=== PATIENT | female | born 1990 | race Caucasian/White ===

== ENCOUNTER 2017-07-30 20:57 | Emergency (ER) | payer OTHER ==
[~2017-07-30] VITALS: Ht 162.6 cm; Wt 77.1 kg
[~2017-07-30 20:57] MED LIST: NAPROXEN500 MG PO; OXYCODONE HCL15 MG PO; OXYCODONE-ACET1 EAC3 PO
[2017-07-31] MEDS ORDERED: CIPRO HC OTIC S10 ML AD (08:15)
[2017-07-31] MEDS ORDERED: CLEOCIN HCL300 MG PO (08:15)
== END 2017-07-30 22:38 | disposition left against medical advice (07) ==
LOC: ED 20:57
DX: Z53.21 Procedure and treatment not carried out due to patient leaving prior to being seen by health care provider (principal)

== ENCOUNTER 2017-07-31 07:47 | Emergency (ER) | payer OTHER ==
[~2017-07-31] VITALS: Ht 162.6 cm; Wt 79.4 kg
[2017-07-31] MEDS ORDERED: CIPRO HC OTIC S10 ML AD (08:15)
[2017-07-31] MEDS ORDERED: CLEOCIN HCL300 MG PO (08:15)
== END 2017-07-31 08:27 | disposition home or self-care (01) ==
LOC: ED 07:47
DX: N61.1 Abscess of the breast and nipple (principal); H60.91 Unspecified otitis externa, right ear; Z23 Encounter for immunization; F17.200 Nicotine dependence, unspecified, uncomplicated; Z88.5 Allergy status to narcotic agent
CPT/HCPCS: 90471; 90715; 96372; 99283; J1885

== ENCOUNTER 2017-09-14 19:20 | Inpatient (IN) | payer OTHER ==
[~2017-09-14] VITALS: Ht 162.6 cm; Wt 87.3 kg
[~2017-09-14 19:20] MED LIST changes: +CIPRO HC OTIC S10 ML AD; +CLEOCIN HCL300 MG PO
[2017-09-14] MEDS ORDERED: ACETAMINOPHEN500 MG PO (20:53)
[2017-09-14] MEDS ORDERED: IBUPROFEN200 M1 PO (20:54)
--- NOTE | 2017-09-15 03:48 | NUR ---
PT ADMITTED FROM ED TO ROOM 130, EMOTIONAL, COMPLAINING OF NECK PAIN, LEFT GROIN PAIN, COMPLAINING OF SCD'S. EDUCATED ON NEED FOR SCD'S. REQUESTED PAIN MED TORODAL GIVEN, BOLUS LR INFUSING, ANTIBIOTIC INFUSING WELL. PT REQUESTED FOOD, RECEIVED. UP TO COMMODE TO VOID WITH 1 PERSON ASSIST. WARM COMPRESS OFFERED, BUT REFUSED TO PUT ON HER NECK TO TO PAIN WITH PRESSURE, LAID NEAR NECK. NECK IS NOT RED, BUT SWOLLEN SOME. PT COMPLAINS OF INTERNAL PAIN. FEMERAL LINE, RIGHT GROIN WNL. PT STATES SHE LAST USED HERION 2 NIGHTS AGO, STATES LAST BM WAS "MAYBE LAST THURSDAY" OR THURSDAY. ON ROOM AIR, SATS 98. BOYFRIEND AT BEDSIDE. CALL LIGHT WITHIN REACH.
--- NOTE | 2017-09-15 04:16 | NUR ---
CALLED DR ANGELES @ 0400 TO REQUEST SOMETHING MORE FOR PAIN PER PT NARENDRA. DUE TO PT DRUG HISTORY AND NARCOTIC ADDICTION FROM THE PAST, HE STATED TO GIVE THE TYLENOL AND ORDERED IBUPROFEN PRN. GAVE PT THE TYLENOL, SHE THEN GOT EMOTIONAL AND SAID WHAT IS HE GOING TO DO WITH "THE WITHDRAWLS I HAVE". VISITED WITH PT ABOUT HER HERION USE, SHE STATES SHE USES DAILY, THEN SHE SAID WHAT IS HE GOING TO DO ABOUT ME NOT SLEEPING. PT IS SITTING UPRIGHT IN BED. SUGGEST SHE TRY TO REST AND SEE IF THE TYLENOL WORKS. PT TOOK HER SCD'S OFF. DIDN'T WANT THEM ON TO START WITH BUT ALLOWED THEM FOR A SHORT TIME, WAS EDUCATED ABOUT WHY THEY ARE USED. SHE STATED SHE UNDERSTOOD.
--- NOTE | 2017-09-15 04:43 | NUR ---
CALLED DR ANGELES TO REPORT PT CONCERN WITH WITHDRAWL, ORDERED METHADONE, HOWEVER MAY NOT BE AVAILABLE TIL PHARMACY COMES IN HOUSE. WILL LET PT KNOW.
--- NOTE | 2017-09-15 05:07 | NUR ---
PT CONTINUES TO BE UPSET, MED WITH JAYANT D/T HER COMPLAINT OF W/D AND HER CONTINUED COMPLAINT SHE CAN'T SLEEP. PT SITTING ON EDGE BED CRYING, KICKING LEGS, COMPLAINING HER LEGS ARE TOO RESTLESS AND MAYBE SHE WILL HAVE THIS "IV" TAKEN OUT AND JUST LEAVE. ENCOURAGED PT TO STAY AND RECEIVE HER ANTIBIOTICS. SHE WANTS TO KNOW WHY ALL THESE THINGS HAVE TO BE ON MY CHEST. EXPLAINED.
--- NOTE | 2017-09-15 05:33 | NUR ---
MED WITH METHADONE, PT CHEWED TABLETS AFTER WONDERING WHY THEY WERE SO SMALL. LAID DOWN IMMEDIATLY, CALMED DOWN. ASK PT HOW LONG BEFORE SHE WILL FEEL THE EFFECTS SHE HAS TAKEN METHADONE "OFF THE STREET", SHE SAID 20 MIN. COVERED WITH BLANKETS, CALL LIGHT WITHIN REACH. RECEIVED REPORT JUST NOW FROM ED RD. SHE STATES PT IS HOMELESS WHICH MAY EXPLAIN WHY PT FEET ARE FILTHY WELL HER HANDS.
--- NOTE | 2017-09-15 06:00 | NUR ---
ATTEMPTED TO DO THE 0600 VITALS, PT REFUSED, WOULD NOT SIT STILL TO DO THE BP, SAID ISN'T THE OTHER 3 ENOUGH YOU DID ALREADY. EXPLAINED THE PROTOCOL, SHE WAS NOT INTERESTED, WANTED THE PHONE, WANTED FOOD. DID GO TO THE BATHROOM AND TRIED TO HAVE A BM, HAD A "SMALL ONE" SHE SAID. PT HAS REFUSED TO KEEP THE PULSEOX ON, REFUSED TO KEEP THE BP CUFF ON , AND WANTS THE HEART MONITOR OFF, SHE IS AWARE OF ALL THE REASONS TO KEEP THEM ON. DR ANGELES NOTIFIED PER JENNIFER VICTORIA.
--- NOTE | 2017-09-15 06:08 | NUR ---
CALLED MD TO UPDATE THE PATIENT IS RESFUSING TO LET US MONITOR HER AT THIS TIME. PT WILL NOT LET STAFF TAKE A BP, MONITOR HR, APPLY SCD'S. PT STATES "I HATE THIS IV, I SHOULD HAVE NEVER LET THEM PUT IT IN". PT STATES "MY SKIN IS CRAWLING, I JUST CANT HOLD STILL". EDUCATED PT ON PURPOSE OF INTERVENTIONS. PT IS TO AGITATED TO UNDERSTAND EDUCATION AT THIS TIME. PER MD GIVE ATIVAN TO HELP WITH AGITATION. NEW ORDER PLACED. WILL CONTINUE TO CLOSELY MONITOR.
--- NOTE | 2017-09-15 06:25 | NUR ---
ENTERED PT ROOM TO UPDATE PT REGAURDING MEDICATION CHANGES. PT WAS RESTING IN BED. PT STARTELED WHEN WOKEN AND STATED "I DONT WANT THOSE CORDS". UPDATED REGUARDING PLAN OF CARE AND MEDICATION CHANGES. PT AGREED TO HAVE HEART MONITOR PLACED BACK ON AND HAVE HER BP TAKEN. PT FELL BACK TO SLEEP WHILE STAFF WERE STILL IN ROOM. WILL HOLD ATIVAN AT THIS TIME WHILE PT IS ABLE TO REST. WILL CONTINUE TO CLOSELY MONITOR.
--- NOTE | 2017-09-15 07:24 | NUR ---
PT GOT SELF TO BSC, VOIDED 1000, STATES SKIN IS LESS CRAWLY, STATES THE METHADONE HAS "KICKED IN", FEELING TIRED.
--- NOTE | 2017-09-15 08:32 | NUR ---
SLEEPING. NO DISTRESS NOTED. IVF PATENT,
--- NOTE | 2017-09-15 10:20 | NUR ---
AWAKE AND AGITATED. REQUESTING METHADONE. THIS NOT ORDERED. ATIVAN 1 MG IV GIVEN, C/O PAIN IN NECK. 11/06. TORDOL GIVEN 30 MG IV. VERY ANGERY ABOUT MOT HAVING METHADONE. DR. ANGELES AWARE.
--- NOTE | 2017-09-15 11:03 | NUR ---
MED REC COMPLETE
--- NOTE | 2017-09-15 11:10 | NUR ---
METHADONE 10 MG PO GIVEN.
--- NOTE | 2017-09-15 12:45 | NUR ---
ANXIOUS. STATES FEELS LIKE GOING THROUGH WITHDRAWAL. DR. ANGELES NOTIEFIED.
--- NOTE | 2017-09-15 12:53 | NUR ---
VALIUM 10 MG IV GIVEN.
--- NOTE | 2017-09-15 17:00 | NUR ---
SPONGE BATH AND BED LINEN CHANGE DONE.
--- NOTE | 2017-09-15 17:05 | NUR ---
REQUESTING VALIUM. VALIUM 5 MG IV GIVEN.
--- NOTE | 2017-09-15 17:35 | NUR ---
IS CRYING AND YELLING OUT ABOUT THE PAIN SHE IS HAVING. STATES WE ARE NOT HELPING HERE WITH THE NECK PAIN. UNABLE TO REASON WITH PATIENT. DR. ANGELES NOTIFIED. METHADONE DC'D AND ULTRAM 50 MG PO Q 6 HR PRN ORDERED. PATIENT MOTHER IS IN ROOM.
--- NOTE | 2017-09-15 18:15 | NUR ---
ULTRAM 50 MG PO GIVEN FOR C/O NECK PAIN 11/06.
--- NOTE | 2017-09-15 20:30 | NUR ---
REPORT RC'D FROM DAY SHIFT NURSE. PT USED CALL LIGHT APPROPRIATELY. PT IN BED AND REQUESTING MEDICATION FOR ANXIETY AND SANDWHICH BOX. MEDICATION UPDATE REVIEWED AND FOOD ORDERED. LR RUNNING AT 125 ML/HR. CENTERAL LINE ASSESSED AND WNL. EDUCATION PROVIDED REGARDING MEDICATIONS, PT VERBALZIED UNDERSTANDING, PT STATES CONCERNS REGARDING MEDICATION ADMINISTRATION THROUGHOUT NIGHT, ALL QUESTIONS ANSWERED, PT REASSURED, NO OTHER CONCERNS. WILL CONTINUE TO MONITOR.
--- NOTE | 2017-09-15 22:00 | NUR ---
PT IN BED PREPARING FOR MIDLINE PLACEMENT, S/O AT BEDSIDE. NICOTINE PATCH PLACED. LR RUNNING AT 125 ML/HR.
--- NOTE | 2017-09-15 22:37 | NUR ---
MIDLINE INSERTION NOTE: ASKED BY DR. ANGELES TO EVALUATE PATIENT FOR POTENTIAL MIDLINE PLACEMENT. AFTER REVIEWING THE CHART AND INTERVIEWING THE PATIENT, NO ABSOLUTE CONTRAINDICATIONS WERE IDENTIFIED. PT CURRENTLY HAS A CENTRAL LINE IN HER RIGHT GROIN AND MD REQUESTING THAT BE D/C AFTER MIDLINE IS ESTABLISHED. PT IS A HEROIN USER AND HAS POOR IV ACCESS ON HER LOWER ARMS. PT GIVES VERBAL CONSENT FOR MIDLINE AFTER A LONG CONVERSATION REGARDING RISKS AND BENEFITS. PT HAS QUITE A BIT OF ANXIETY RELATED TO ANY MEDICAL PROCEDURE, BUT IS ANXIOUS TO HAVE THE CENTRAL LINE OUT OF HER GROIN. PATIENT'S RIGHT ARM WAS EVALUTED USING THE SITE RITE U/S. PT'S BASILIC VEIN WAS EASILY IDENTIFIED AND FOUND TO BE GREATER THAN 8 FR BY THE SITE RITE U/S. PT'S BRACHIAL AND CEPHALIC VEINS WERE ALSO IDENTIFIED EASILY. PATIENT'S ARM WAS THEN STERILY PREPPED USING CDC RECOMMENDED STERILE PROCEDURE. IV ACCESS WAS EASILY OBTAINED IN THE BASILIC VEIN WITH BRISK, NON PULSATILE DARK BLOOD RETURN NOTED. GUIDEWIRE, INTRODUCER, AND MIDLINE ALL ADVANCED EASILY WITHOUT DIFFICULTY. MIDLINE WAS TRIMMED TO 17 CM AND 0 CM WERE LEFT EXPOSED. PT WAS ANXIOUS DURING THE PROCEDURE BUT TOLERATED FAIR. BLOOD RETURN IS EASILY ASPIRATED AND MIDLINE FLUSHES WELL. DRESSING WAS STERILY PLACED OVER THE SITE AFTER SECUREMENT DEVICE AND ANTIMICROBIAL PATCH APPLIED. PT WAS OFFERED A WARM BLANKET TO WRAP HER ARM BUT DENIED THE NEED AT THIS TIME. PT WAS ENCOURAGED TO ASK QUESTIONS REGARDING HER MIDLINE. EDUCATION MATERIAL LEFT IN CHART.
--- NOTE | 2017-09-15 23:03 | NUR ---
UPON ENTERING THE ROOM TO START THE MIDLINE INSERTION AT AROUND 2140, PATIENT WAS NOTED TO BE IN THE BATHROOM WITH HER IV POLE. PATIENT WAS FLUSHING THE TOILET MULTIPLE TIMES, OVER AND OVER. UPON PATIENT RETURNING FROM THE BATHROOM, A STRONG INCREASED SMELL OF CIGARETTE SMOKE WAS NOTED. PATIENT WAS THEN ASKED IF SHE WAS JUST SMOKING IN THE BATHROOM TO WHICH SHE DENIED. EXPLAINED TO PATIENT THOROUGHLY THAT IT IS A SAFETY HAZARD TO HAVE ANY SMOKING IN THE HOSPITAL, AND THAT NEEDS TO STOP IMMEDIATELY. PATIENT THEN ASKED AGAIN IF SHE WAS INDEED SMOKING IN THE BATHROOM AND SHE ADMITTED TO IT THIS TIME. PATIENT REMINDED STRONGLY THAT IT IS NOT ALLOWED AND COMPLETELY UNACCEPTABLE TO DO THIS. NOTED THAT PATIENT DID NOT HAVE A NICOTINE PATCH YET AND THIS WAS ORDERED FOR APPLIED ON RIGHT BACK AREA. PATIENT'S SIGNIFICANT OTHER WAS ALSO ASKED TO PLEASE GO OUTSIDE IF HE NEEDS TO SMOKE AND HE STATED, "I DO, AND IT WASN'T ME SMOKING IN THERE." PATIENT ALSO CORROBORATED THIS AND STATED IT WAS HER ONLY THAT WAS SMOKING. PATIENT LATER APOLOGIZED FOR LYING. CONTINUE TO MONITOR.
--- NOTE | 2017-09-15 23:10 | NUR ---
PT NOTED TO BE OFF MONITOR. THIS RN IN ROOM TO ASSESS IF PT IS IN RESTROOM SMOKING, NO ODOR OF SMOKE NOTED, PT DENIES SMOKING. THIS RN AT BEDSIDE UNTIL PT FINISHED IN RESTROOM. REINFORCEMENT OF NO SMOKING PROVIDED, PT VERBALIZED UNDERSTANDING, WILL CONTINUE TO MONITOR.
--- NOTE | 2017-09-16 02:37 | NUR ---
PT RESTING IN BED WITH EYES CLOSED, NO ACUTE DISTRESSED NOTED, S/O AT BEDSIDE. VANCOMYCIN INFUSION NEARLY COMPLETE, CLINDAMYCIN TO BE HUNG, LR RUNNING AT 125 ML/HR. LAST BP 126/84, MAP 94, HR 84, RR 28, AND SPO2 98% ON RA.
--- NOTE | 2017-09-16 04:05 | NUR ---
PT USED CALL LIGHT APPROPRIATELY. PT CRYING AND STATING HER NECK IS BOTHERING HER, REQUESTING MEDICATION. 650 MG TYLENOL AND 30 MG TORADOL GIVEN. PT REFUSED VITAL SIGNS AT THIS TIME. WILL REASSESS PAIN AND VITAL SIGNS.
--- NOTE | 2017-09-16 06:10 | NUR ---
OBTAINED VITALS FROM PT AT THIS TIME, PT VERBALZIED FRUSTRATION WITH HAVING VITALS TAKEN, EDUCATION PROVIDED ON IMPORTANCE OF VITAL SIGNS, PT RIPPED BLOOD PRESSURE CUFF OFF AND SIGHING LOUDLY. INFORMED PT THAT DRESSING CHANGE NEED FOR MIDLINE, PT VERBALIZED FRUSTRATION AND STATED SHE DID NOT WANT TO CHANGE THE DRESSING, EDUCATION PROVIDED, PT AGREEABLE TO CHANGE. DRESSING CHANGE COMPLETED, MEDICATIONS GIVEN, AND WARM BLANKET PROVIDED.
--- NOTE | 2017-09-16 08:11 | NUR ---
pt sleeping soundly at this time. resp even and unlabored, hr is regular 80bpm. pt in no obvious signs of distress. boyfriend is at the bedside. midline intact, fluids infusing easily.
--- NOTE | 2017-09-16 09:20 | NUR ---
PT AWAKE AND UP TO BEDSIDE COMMODE WITH ONLY STANDBY ASSIST. PT ABLE TO VOID 600. THEN BACK TO BED. VITALS WNL AT THIS TIME.
--- NOTE | 2017-09-16 09:42 | NUR ---
PT GIVEN PO TYLENOL AND IV TORADOL FOR 7/10 NECK PAIN. PT ALSO GIVEN 10 MG PO VALIUM FOR ANXIETY. PT CURRENTLY EATING BREAKFAST SITTING UP IN BED. PT VERY CONCERNED ABOUT GETTING MEDICTIONS SOON THEY ARE AVALIABLE. PT COOPERATIVE AT THIS TIME.
--- NOTE | 2017-09-16 10:18 | NUR ---
RECIEVED REPORT VIA TELEPHONE FROM JLUIEN VALENTINE.
--- NOTE | 2017-09-16 10:20 | NUR ---
FULL REPORT GIVEN TO MC VICTORIA ON MED/SURG FLOOR VIA PHONE.
--- NOTE | 2017-09-16 10:40 | NUR ---
PT TRANSFERED TO MED/SURG ROOM 119, ALL PERSONAL BELONGINGS TRANSFERED WITH
--- NOTE | 2017-09-16 10:48 | NUR ---
PT TO FLOOR FROM CCU TO ROOM 119 ACCOMPANIED BY SERGE CCU RN. PT TO FLOOR AT 1045.
--- NOTE | 2017-09-16 12:14 | NUR ---
NOTIFIED DR. ANGELES THAT PT IS REFUSING TO WEAR HER SCDs, DESPITE ENCOUARGMENT AND EDUCATION FROM THIS RN. DR. ANGELES ORDERED LOVENOX.
--- NOTE | 2017-09-16 12:37 | NUR ---
PT SITTING UP IN BED, WATCHING TV, BRUSHING HAIR. PT HAD A SHOWER WITH ASSIST FROM BOOKS SALESPERSON. PT HAS PERSONAL SUPPLIES AND CALL LIGHT IN REACH.
--- NOTE | 2017-09-16 12:40 | NUR ---
PT RESTING IN BED, BOY FRIEND ANA M PRESENT IN RM EATING LUNCH. PT RATHER CALM DEMEANOR TOWARDS ME, MENTIONED THAT THINGS WERE A LITTLE ROUGH NOW-SHE IS HOMELESS, AND NECK PAIN CONTINUES. PT REQUESTED PRAYER, WILL CONTINUE TO FOLLOW NEEDED
--- NOTE | 2017-09-16 13:24 | NUR ---
PT'S MIDLINE DRESSING TO RIGHT UPPER EXTREMITY DAMP FROM SHOWER. REPLACED DRESSING USING STERILE TECHNIQUE. LENGTH OF LINE FROM INSERTION SITE TO CAP 17 CM, ARM CIRCUMFERENCE 32 CM.
--- NOTE | 2017-09-16 13:37 | NUR ---
PT C/O 10/06 PAIN TO NECK. GAVE ACETAMINOPHEN PRN, AND SCHEDULED METHADONE.
--- NOTE | 2017-09-16 14:28 | NUR ---
PT RESTING IN BED. IV ABX COMPLETE. PERSONAL SUPPLIES AND CALL LIGHT IN REACH. DENIED NEEDS AT THIS TIME.
--- NOTE | 2017-09-16 15:10 | NUR ---
PATIENT RESTING IN BED. RN IN ROOM. PATIENTS BOYFRIEND IN ROOM. VITALS AND I&Os DONE. CALL LIGHT WITHIN REACH. NO OTHER NEEDS AT THIS TIME.
--- NOTE | 2017-09-16 15:49 | NUR ---
PT SITTING UP IN BED, EATING CAKE AND ICE CREAM, WATCHING TELEVISION. PT RATED PAIN TO NECK AT 4/10. PT DENIED NEEDS AT THIS TIME. PERSONAL SUPPLIES AND CALL LIGHT IN REACH.
--- NOTE | 2017-09-16 17:23 | NUR ---
PT TRANSFERED TO FLOOR FROM CCU THIS SHIFT. PT UP WITH STANDBY ASSIST, STEADY ON FEET. PT TOOK A SHOWER THIS AFTERNOON. HAS MIDLINE IV TO RUE. MIDLINE DRESSING CHANGED, THIS BECAME DAMP FROM SHOWER. PT HL EXCEPT FOR IV ABX. HRR, LUNGS CTA. PT'S APETITE IS VERY GOOD. PT'S BOYFRIEND HAS BEEN IN ROOM WITH PT MOST OF SHIFT. PT RATED PAIN TO NECK 4-7/10, DID REPORT RELIEF WITH PRN ACETAMINOPHEN AND SCHEDULED METHADONE. RATED PAIN TO NECK 4/10 AFTER RECIEVING THESE. PT C/O ANXIETY, RECIEVED PRN VALIUM FOR THIS. PT IS NOW AMBULATING IN HALLS WITH HER MOTHER AT SIDE. PT DENIES LIGHTHEADEDNESS OR DIZZINESS, STEADY ON FEET, TOLERATING AMBULATION WELL.
--- NOTE | 2017-09-16 19:00 | NUR ---
BEDSIDE HANDOFF REPORT RECEIVED FROM DAY SHIFT RN. PT REQUESTING PAIN MEDICATION, DISCUSSED WITH PT. PT DENIES OTHER NEEDS AT THIS TIME.
--- NOTE | 2017-09-16 19:40 | NUR ---
patient sitting up in bed. patients boyfriend in room. vitals and i&os done. call light within reach. rn in room. garbage emptied. no other needs at this time.
--- NOTE | 2017-09-16 20:18 | NUR ---
PT RESTING IN BED. PT ON ROOM AIR, LUNG SOUNDS CLEAR, DENIES SOB. PT COMPLAINT OF PAIN 7/10 TO NECK, GIVEN PRN TYLENOL. IV VANCO INFUSION COMPLETED, IV CLINDAMYCIN STARTED, MIDLINE POSITIONAL, PT ENCOURAGED TO TRY TO KEEP ARM STRAIGHT FOR INFUSION. PT BOWEL TONED ACTIVE, GOOD APPETITE, TOLERATING REGULAR DIET. PT CMS INTACT, PULSES PALPABLE, WITHOUT EDEMA. PT SBA TO BATHROOM, VOIDING WITHOUT DIFFICULTY. DISCUSSED PLAN OF CARE, PT REQUESTING VALIUM AND REQUESTING SOMETHING TO HELP WITH SLEEP. PT DENIES OTHER NEEDS AT THIS TIME.
--- NOTE | 2017-09-16 21:37 | NUR ---
PT GIVEN PRN VALIUM, SCHEDULED METHADONE AND TRAZADONE TO ASSIST WITH SLEEP. PT DENIES OTHER NEEDS AT THIS TIME.
--- NOTE | 2017-09-16 22:05 | NUR ---
VITALS AND I&OS DONE AND CHARTED. BEDSIDE TABLE AND CALL LIGHT WITHIN REACH. PT SAYS SHE HAS BEEN URINATING IN THE TOILET BUT SHE ISNT VOIDING IN THE HAT. I ASKED TO PLEASE USE THE HAT NEXT TIME SO WE CAN MEASURE IT. SHE SAID OK. I ASKED HOW MANY TIMES SHE HAD VOIDED IN THE LAST 4 HRS? SHE SAID "1 I THINK?"
--- NOTE | 2017-09-17 01:48 | NUR ---
PT SLEEPING. IV VANCO ANC CLIDAMYCIN INFUSION STARTED TO RIGHT ARM MIDLINE. PT ASSISTED TO BATHROOM AND BACK TO BED. PT REQUESTING VALIUM AND TYLENOL, GIVEN. PT DENIES OTHER NEEDS AT THIS TIME.
--- NOTE | 2017-09-17 05:39 | NUR ---
WHILE REVIEWING EMAR RECORDS, IT WAS NOTED THAT PT HAD CLONIPINE PATCH TO RIGHT ARM AND NICOTINE PATCH TO RIGHT SHOULDER. CLONIPINE PATCH ON RIGHT ARM WAS INADVERTENTLY REMOVED DURING EVENING MEDICATION PASS, THOUGHT TO BE NICOTINE PATCH, PT WITH ONLY ONE PATCH AT TIME OF REMOVAL. VERIFIED THAT PT DOES NOT HAVE ADDITIONAL PATCH TO RIGHT SHOULDER OR ARM, LEFT SHOULDER CLONIDINE PATCH NOTED. PT PROVIDED WITH SCHEDULED METHADONE, PT FAIRLY DROWSY, REQUESTED VALIUM, VALIUM HELD DUE TO DROWSINESS. PT AMBULATED TO BATHROOM AND BACK TO BED. PT DENIES OTHER NEEDS AT THIS TIME.
--- NOTE | 2017-09-17 05:59 | NUR ---
PT ON ROOM AIR, LUNG SOUNDS CLEAR. PT DROWSY FOR MUCH OF THE NIGHT, EASILY AROUSABLE TO VOICE OR GENTLY TOUCH. PT RECEIVED PRN VALIUM X2, METHADONE SCHEDULED. MIDLINE TO RIGHT ARM, PATENT, HEP LOCKED, BLOOD RETURN. PT UP WITH SBA/INDEPENDENT. PT TOLERATING REGULAR DIET, DENIES NAUSEA. VOIDING QS.
--- NOTE | 2017-09-17 06:37 | NUR ---
VITALS AND I&OS DONE AND CHARTED. BEDSIDE TABLE AND CALL LIGHT WITHIN REACH.
--- NOTE | 2017-09-17 07:48 | NUR ---
BEDSIDE REPORT RECEIVED FROM TESSA VICTORIA. PATIENT SLEEPING. ALLOWED SLEEP. ALL QUESTIONS ANSWERED.
--- NOTE | 2017-09-17 08:08 | NUR ---
pt sleeping at this time. holding senna and lovenox until awake.
--- NOTE | 2017-09-17 09:00 | NUR ---
pt was asked if she would like to shower and she patricio no becuase she showered yesterday.
--- NOTE | 2017-09-17 09:02 | NUR ---
pt sleeping in this morning. took scheduled meds. hep locked CATA midline. will draw blood from midline for vanco trough and morning labs per MD permission. pt up to bathroom now. no BM since.
--- NOTE | 2017-09-17 09:39 | NUR ---
WASTED 8ML BLOOD FROM MIDLINE AND JASPER BLOOD FOR LAB. FLUSHED WITH 20ML NS AND THEN HEPARIN LOCKED. PATIENT STILL SLEEPING WELL.
--- NOTE | 2017-09-17 09:59 | NUR ---
pt is resting in bed safely with call light in reach. pt was not hungry for breakfast and has not gotten up yet to go bathroom. nurse aware.
--- NOTE | 2017-09-17 13:01 | NUR ---
PT ANXIOUS AND IRRITABLE ABOUT PAIN MANAGEMENT REGIMEN. SPEAKING TO PATIENT ABOUT HER OPTIONS FOR PAIN MANAGEMENT.
--- NOTE | 2017-09-17 15:25 | NUR ---
GIVEN COLA AND ICE PER REQUEST. PATIENT AND SIGNIFICANT OTHER UP IN HALLS AMBULATING SEVERAL LAPS. ATTEMPTED TO WALK OUTSIDE, BUT WAS REDIRECTED BY STAFF TO STAY ON MED SURG UNIT.
--- NOTE | 2017-09-17 15:53 | NUR ---
SPOKE AT LENGTH TO PATIENT IN ROOM. ALSO THERE WAS HER BOYFRIEND. PATIENT STATES SHE IS INTERESTED IN TREATMENT INFORMATION. SHE STATES SHE IS NOT READY TO GO "NOW". EXPLAINED WE CAN GIVE HER THE INFORMATION AND SHE CAN MAKE THE CALL WHEN SHE IS READY. SHE STATES THEY ARE HOMELESS. WANTED INFORMATION REGARDING HELP WITH HOUSING. DISCUSSED I CAN GIVE HER NUMBERS FOR THE [facility] OFFICE. SHE ALSO STATES SHE CANNOT GO TO OLD PCP IN [place] DUE TO NO TRANSPORTATION. EXPLAINED HER INSURANCE PROVIDES TRANSPORTATION IF ARRANGED IN [place]. SHE STILL WOULD LIKE PCP HERE. WILL CHECK TO SEE IF PATIENT CAN GET AN APPOINTMENT AT [facility]. PATIENT TEARFUL ABOUT TREATMENT. WANTS TO TRY METHADONE. I EXPLAINED I WILL GIVE HER THE NUMBER TO [facility] AND THEY CAN HELP HER IN ANY DIRECTION SHE CHOOSES FOR TREATMENT. PATIENT DOES NOT HAVE A PHONE. I DISCUSSED THAT [facility] MIGHT BE ABLE TO HELP HER WITH THIS. EXPLAINED I CAN GIVE HER RESOURCES, BUT IT IS HER RESPONSIBILITY TO FOLLOW THROUGH WITH IT. SHE STATES UNDERSTANDING.
--- NOTE | 2017-09-17 17:52 | NUR ---
unable to get blood return on midline. tried different arm positions. flushes well with NS. anxiety medication given per request. vanco infusing. concerned about test results of CT today. would like to know about changes to pain medications as well.
--- NOTE | 2017-09-17 18:41 | NUR ---
ANXIOUS THROUGHOUT DAY. HAD CHEST/NECK CT TO SEE CHANGES. RESULTS NOT EXPLAINED TO PATIENT YET, BUT SHE WOULD LIKE THE DOCTOR TO LET HER KNOW. ALSO REQUESTING CHANGES FOR DIFFERENT PAIN MEDS (unlikely the doctor will change them). ATIVAN ORDERED FOR ANXIETY. DO NOT LET HER HAVE Q1H (warned of hallucinaton side effect). VANCO/CLINDAMYCIN. MIDLINE CATA NO BLOOD RETURN. HEP LOCKED BETWEEN ABX. UNSURE IF PT MANIPULATING IT. SAW BLOOD IN LINE WHEN STARTED VANCO THIS EVENING. IV IN LEFT ARM UNABLE TO FLUSH. LEFT NECK SLIGHTLY SWOLLEN.
--- NOTE | 2017-09-17 19:15 | NUR ---
RECEIVED REPORT FROM RN. PATIENT RESTING COMFORTABLY IN BED WITH EYES CLOSED, FLACC SCORE OF 0. CALL LIGHT WITHIN REACH.
--- NOTE | 2017-09-17 20:45 | NUR ---
PATIENT IN BED, APPEARS ANXIOUS. PRN ATIVAN GIVEN, SCHEDULED METHADONE GIVEN. PRN TORDOL ALSO GIVEN FOR PAIN IN NECK. PATIENT DENIES FURTHER NEEDS. CALL LIGHT WITHIN REACH.
--- NOTE | 2017-09-17 20:57 | NUR ---
VITALS AND I&OS DONE AND CHARTED. BEDSIDE TABLE AND CALL LIGHT WITHIN REACH.
--- NOTE | 2017-09-17 21:30 | NUR ---
UPDATED DR. FALCON REGARDING MIDLINE NOT HAVING BLOOD RETURN. CATHFLO ORDERED.
--- NOTE | 2017-09-17 22:27 | NUR ---
PER PT REQUEST I GAVE HER TWO PUDDINGS AND AN ICE CREAM.
--- NOTE | 2017-09-17 22:41 | NUR ---
PATIENT CONTINUES TO REPORT 7/10 PAIN IN NECK, PRN TYLENOL GIVEN. PATIENT HAS CONTINUED ANXIETY, PRN PO VALIUM AND 2 MG IV ATIVAN GIVEN. ALSO GAVE PO BENEDRYL. PATIENT DENIES FURTHER NEEDS. CALL LIGHT WITHIN REACH.
--- NOTE | 2017-09-17 23:00 | NUR ---
PATIENT FOUND WALKING HALLS WITH BOYFRIEND, FOUND BY STAIRWAY EXIT. PATIENT DENIES SMOKING OR USING ANY MEDICATIONS/ILLICIT DRUGS. EDUCATED PATIENT ABOUT SAFETY REGARDING USING ANY ILLICIT DRUGS OR MEDICATIONS NOT ADMINISTERED BY HOSPITAL STAFF AND THE DANGERS OF SMOKING WHILE IN HOSPITAL. PATIENT AGAIN DENIES USE.
--- NOTE | 2017-09-17 23:41 | NUR ---
PATIENT RESTING IN BED, BREATHING IS EVEN AND UNLABORED. FLACC SCORE OF 0. 1MG CATHFLO GIVEN THROUGH MIDLINE PER ORDER FROM DR. FALCON. CALL LIGHT WITHIN REACH.
--- NOTE | 2017-09-18 01:30 | NUR ---
PATIENT RESTING WITH EYES CLOSED, BREATHING IS EVEN AND UNLABORED, RR IS 20. FLACC SCORE OF 0. CALL LIGHT WITHIN REACH.
--- NOTE | 2017-09-18 02:29 | NUR ---
PATIENT RESTING WITH EYES CLOSED, RESPONDS TO VOICE AND GENTLE TOUCH, REQUIRES STERNAL STIMULATION AT TIMES TO OPEN EYES. PATIENT STATES "I'M FINE" WHEN ASKED HOW PATIENT IS DOING. RR IS 20, O2 SATURATION IS 96% ON ROOM AIR. ASPERATED 5ML BLOOD FROM MIDLINE, NOW HAS BLOOD RETURN AFTER CATHFLO. CALL LIGHT WITHIN REACH.
--- NOTE | 2017-09-18 02:53 | NUR ---
SPOKE WITH LEAD PASTOR PHARMACIST, VERIFIED THAT VANCO DOSE OKAY TO GIVE.
--- NOTE | 2017-09-18 04:00 | NUR ---
PATIENT RESTING COMFORTABLY IN BED, BREATHING IS EVEN AND UNLABORED. FLACC SCORE OF 0. CALL LIGHT WITHIN REACH.
--- NOTE | 2017-09-18 05:21 | NUR ---
VITALS AND I&OS DONE AND CHARTED. BEDSIDE TABLE AND CALL LIGHT WITHIN REACH.
--- NOTE | 2017-09-18 05:23 | NUR ---
UPDATED DR. FALCON REGARDING UNABLE TO PULL BLOOD FROM MIDLINE. ANOTHER ORDER FOR CATHFLO RECEIVED.
--- NOTE | 2017-09-18 06:42 | NUR ---
PATIENT RESTING COMFORTABLY IN BED, BREATHING IS EVEN AND UNLABORED. DENIES NEEDS AT THIS TIME. CALL LIGHT WITHIN REACH.
--- NOTE | 2017-09-18 07:10 | NUR ---
BEDSIDE HANDOFF REPORT RECIEVED FROM INTERIOR DESIGN PROFESSIONAL RN. PT SLEEPING, LEFT UNDISTURBED.
--- NOTE | 2017-09-18 07:42 | NUR ---
PATIENT RESTING IN BED, EYES CLOSED. PATIENT'S BOYFRIEND IN ROOM. CALL LIGHT IN REACH. NO OTHER NEEDS AT THIS TIME.
--- NOTE | 2017-09-18 08:20 | NUR ---
PT RESTING IN BED, EASILY AROUSABLE TO VOICE. PT FEELING ANXIOUS, AGGITATED REQUESTING SOEMTHING FOR ANXIETY, GIVEN 2MG IV ATIVAN. PT ON ROOM AIR, LUNG SOUNDS CLEAR, DENIES SOB. PT COMPLAINT OF PAIN TO LEFT NECK AND THROAT, RATIGN PAIN 7/10, DOES NOT RECEIVE RELIEF FROM PAIN MEDICATION. PT WITH MIDLINE TO RIGHT ARM, CATHFLOW IN LINE REMOVED, BLOOD RETURN, FLUSHED, IV CLINDAMYCIN INFUSING. PT ASSISTED TO BATHROOM, SBA, VOIDING WITHOUT DIFFICULTY. CMS INATCT WITHOUT EDEMA. BOWEL TONES ACTIVE, DENIES NAUSEA, TOLERATING REGULAR DIET. PT DENIES OTHER NEEDS AT THIS TIME.
--- NOTE | 2017-09-18 09:35 | NUR ---
LABS DRAWN FROM RIGHT ARM MIDLINE. PT SLEEPING, AROUSABLE TO KEITH BUT QUICKLY FALLS ASLEEP.
--- NOTE | 2017-09-18 09:51 | NUR ---
PATIENT DOES NOT AWAKE WHEN TOUCHED OR MOVED, PATIENT MUMBLES WHEN SPOKEN TO. RN NOTIFIED OF PATIENTS BEHAVIOR AND VITAL SIGNS OUT OF NORMAL LIMITS.
--- NOTE | 2017-09-18 10:50 | NUR ---
PT ANXIOUS ABOUT TRANSFER AND PAIN MEDICATION DURING AMBULANCE RIDE. DISCUSSED TRANSFER WITH PT.
--- NOTE | 2017-09-18 11:12 | NUR ---
GAVE PATIENT CONTACT INFORMATION FOR FOLLOWING RESOURCES. [facility] [address] [phone] EXT [address] [facility] [phone] EXPLAINED THAT SHE CAN GO DIRECTLY TO OFFICES OR CALL AFTER SHE IS DISCHARGED. PATIENT VERY DROWSY. BOYFRIEND AT BEDSIDE AND INFORMATION LEFT WITH HIM.
--- NOTE | 2017-09-18 12:41 | NUR ---
PATIENT RESTING IN BED, CALL LIGHT IN REACH. NO OTHER NEEDS AT THIS TIME.
--- NOTE | 2017-09-18 12:54 | NUR ---
PT AND MOTHER REQUESTING UPDATE ABOUT TRANSFER AND REASON FOR TRANSFER. DISCUSSED CT SCAN RESULTS AND NEED FOR FURTHER TESTING AT [facility]. PT DENIES OTHER NEEDS AT THIS TIME.
== END 2017-09-18 14:39 | disposition short-term general hospital (02) | DRG 871 ==
LOC: ED 19:20 → CCU 09-15 02:42 → MS 09-16 10:45
PROVIDERS: ADMIT Internal Medicine
PROC: 05HY33Z Insertion of Infusion Device into Upper Vein, Percutaneous Approach (ICD-10-PCS; principal; 2017-09-15)
DX: A41.9 Sepsis, unspecified organism (principal); I26.90 Septic pulmonary embolism without acute cor pulmonale; M60.08 Infective myositis, other site; F11.23 Opioid dependence with withdrawal; F17.200 Nicotine dependence, unspecified, uncomplicated; B18.2 Chronic viral hepatitis C; D69.6 Thrombocytopenia, unspecified; Z88.5 Allergy status to narcotic agent
CPT/HCPCS: 36556; 36569; 70490; 70491; 71046; 71250; 71260; 80048; 80053; 80202; 83605; 84703; 85025; 85610; 85651; 85730; 86140; 86703; 87040; 93306; 96361; 96374; 96375; 96376; 99285; 99406; J1170; J1650; J1885; J2060; J2405; J2997; J3010; J3360; J3370; J7030; J7040; J7050; J7060; J7120; Q0163; Q9967